=== PATIENT | female | born 1990 | race Caucasian/White ===

== ENCOUNTER 2021-07-21 08:53 | Day surgery (SDC) | payer BC, SELFPAY ==
--- NOTE | 2021-07-20 08:52 | P.CONAN_ITS ---
Documented by User: Taylor Omer NP 07/20/21 08:52 HPI - Anesthesia Eval Consult details Narrative: 31yo F for Upper Endoscopy COUNT INCLUDES THE [facility] Past Medical History Medical History GERD (gastroesophageal reflux disease) Surgical History Surgical History [place] teeth extracted Social History Social History Patient Tobacco Use Status: Never used Tobacco Use of substances other than those prescribed or required for medical reasons: No Have you been hit, kicked, punched, or otherwise hurt by someone within the past year? If so, by whom?: No Advance Directives: No Advance Directives Information Provided: Yes Recently lost weight without trying: No Nutrition Risks: No Nutritional Risk Meds Allergies Allergy/AdvReac Type Severity Reaction Status Date / Time shellfish derived Allergy Unknown Verified 07/20/21 07:57 Home Medications Medication Instructions Recorded Confirmed Last Taken Type omeprazole 20 mg tablet,delayed 1 tab PO QAM 07/20/21 07/20/21 Unknown History release Exam Exam Date and Time: July 20, 2021 0852 Assessment and Plan Assessment Anesthesia Assessment: Chart Reviewed Documented by User: Dorothea Rubin MD 07/21/21 09:56 COUNT INCLUDES THE [facility] Past Medical History Medical History GERD (gastroesophageal reflux disease) Surgical History Surgical History [place] teeth extracted History of Problems with Anesthesia: No Social History Social History Patient Tobacco Use Status: Never used Tobacco Use of substances other than those prescribed or required for medical reasons: No Have you been hit, kicked, punched, or otherwise hurt by someone within the past year? If so, by whom?: No Advance Directives: No Advance Directives Information Provided: Yes Recently lost weight without trying: No Nutrition Risks: No Nutritional Risk Meds Allergies Allergy/AdvReac Type Severity Reaction Status Date / Time shellfish derived Allergy Unknown Verified 07/20/21 07:57 Home Medications Medication Instructions Recorded Confirmed Last Taken Type omeprazole 20 mg tablet,delayed 1 tab PO QAM 07/20/21 07/20/21 Unknown History release Exam Airway Mallampati Class: I TM Dist: >3cm Neck ROM: Full Loose/Missing/Broken Teeth: No Heart: RRR Lungs: CTA Assessment and Plan Assessment Anesthesia Assessment: Anesthesia Plan Discussed Final Anesthetic Review History of Problems with Anesthesia: No NPO: Yes ASA Class: II Final Preanesthetic Review: Meds/Allgs Chart Reviewed, Consent Obtained/Reviewed and Anes Risks/Benef Reviewed Patient Risk: Low Procedure Risk: Intermediate Anesthetic Plan Anesthetic Plan: MAC: Disposition: Standard PACU
[2021-07-21 09:08] VITALS: BP 98/65; PULSE 92; RESP 16; TEMP 36.8; O2SAT 100; BMI 22.7
[2021-07-21 09:18] LABS: UPreg QC Valid YES
[2021-07-21 09:19] LABS: Urine Pregnancy NEGATIVE (NEGATIVE)
[2021-07-21] MEDS: Lactated Ringers 1,000 ML 100 ML IVCONT (09:22)
--- NOTE | 2021-07-21 10:04 | MHC.SHP ---
Pre-Procedural Eval Section A Date of Service: 07/21/21 The patient is an INPATIENT: No Changes since office visit: No Cold of Flu in the past 2 weeks, No New Medical Problems, No Changes in Medication and No Patient answered all questions The History & Physical has been completed within 30 days and I have reviewed it.: Yes Section B Chief Complaint: reflux disease Allergies: Allergies Allergy/AdvReac Type Severity Reaction Status Date / Time shellfish derived Allergy Unknown Verified 07/20/21 07:57 Plan I have reviewed the history and physical and performed a pertinent physical examination on my patient. No changes have occurred unless specified.
--- NOTE | 2021-07-21 10:31 | P.BOP_ITS ---
Brief Operative Note Date of Service: 07/21/21 Pre-op diagnosis: GERD Post-op diagnosis: same Surgeon: Jonathan Orozco Anesthesia: MAC Was an Handle And Vent Machine Operator used for this Procedure?: No Estimated blood loss (mL): 4 Pathology: other (ANTRAL BXS, BXS GASTRIC POLYP, EGJ BXS) Condition: stable Disposition: PACU
[2021-07-21 10:35] VITALS: BP 83/49; PULSE 76; RESP 16; TEMP 36.8; O2SAT 99
[2021-07-21 10:50] VITALS: BP 88/62; PULSE 66; RESP 18; O2SAT 98
[2021-07-21 11:05] VITALS: BP 97/61; PULSE 71; RESP 18; TEMP 36.9; O2SAT 100
--- NOTE | 2021-07-21 11:12 | OP_ITS ---
SURGEON: Jonathan Orozco MD INDICATIONS: Gastroesophageal reflux disease. PREOPERATIVE DIAGNOSIS: POSTOPERATIVE DIAGNOSIS: PROCEDURE PERFORMED: Upper endoscopy with biopsy. ESTIMATED BLOOD LOSS: COMPLICATIONS: ANESTHESIA: ASSISTANTS: SPECIMENS: MEDICATIONS: Monitored anesthesia care. DESCRIPTION OF PROCEDURE: History and physical performed. The risks and benefits of the procedure were explained to the patient. Informed consent was obtained. The patient was placed in the left lateral decubitus position. The Olympus video gastroscope was introduced into the esophagus, stomach, and duodenum. Examination was performed and the scope was removed. She tolerated the procedure well and was taken to recovery area in stable condition. FINDINGS: Esophagus: The esophagus was normal. There was no esophagitis. Biopsies were obtained from the EG junction. Stomach: Stomach showed no evidence of masses or ulcers. There were approximately 4 to 5 less than 10 mm benign-appearing polyps in the body and fundus. Two of these were biopsied. Antral biopsies were obtained to rule out H pylori. Duodenum: The bulb and second portion were normal. IMPRESSION: Gastroesophageal reflux disease, gastric polyps. RECOMMENDATION: Follow up the biopsy results. MD TYLOR Sawyer/SHARMIN / [id number]
== END 2021-07-21 11:35 | disposition home or self-care (01) ==
PROVIDERS: Nurse Practitioner; PCP Student in an Organized Health Care Education/Training Program; Visit Provider Internal Medicine Gastroenterology
PROC: 0DJ08ZZ Inspection of Upper Intestinal Tract, Via Natural or Artificial Opening Endoscopic (ICD-10-PCS; CPT 43235; principal; 2021-07-21 10:10)
DX: K21.9 Gastro-esophageal reflux disease without esophagitis (principal); K31.7 Polyp of stomach and duodenum; Z79.899 Other long term (current) drug therapy
CPT/HCPCS: 43239; 81025; 88305; 88342; J3010